=== PATIENT | male | born 1950 | race Caucasian/White ===

== ENCOUNTER → 2016-07-28 | Outpatient (CLI) | payer MEDICARE, BC ==
--- NOTE | 2016-07-28 15:53 | Diagnostic Imaging Report ---
Indication: 12 Technique: PA and lateral views of the chest. Findings: Comparison: None The bones and extra pulmonary soft tissues, cardiomediastinal silhouette, pulmonary vasculature and parenchyma, and pleural surfaces remain unremarkable. IMPRESSION: Negative PA and lateral chest radiographs , unchanged
== END | disposition home or self-care (01) ==
LOC: RAD 12:27
DX: Z01.818 Encounter for other preprocedural examination (principal); I10 Essential (primary) hypertension; R05 Cough
CPT/HCPCS: 71020